=== PATIENT | male | born 2000 | race Caucasian/White ===

== ENCOUNTER 2019-06-09 19:06 | Emergency (ER) | payer SELFPAY ==
[~2019-06-09] VITALS: Ht 172.7 cm; Wt 74.8 kg
--- NOTE | 2019-06-09 19:10 | NUR ---
PATIENT TO ER #[id number]
--- NOTE | 2019-06-09 19:15 | NUR ---
Pt report received. Pt c/o ringing to left ear x 1 week. Pt states it's worse when he lays down and experiences sharp intermittent pain to back of head. Denies trauma or injury, no drainage noted. Cerum noted to bilat ear canals.
[2019-06-09 19:16] VITALS: BP_SYST 160
--- NOTE | 2019-06-09 19:16 | NUR ---
Dr. Chang at bedside.
--- NOTE | 2019-06-09 19:30 | NUR ---
Unable to visualize tympanum to bilateral ears as they are impacted with cerumen. Right ear irrigated with copious amounts of NS and small pieces of cerumen dislodge from ear canal. More NS placed to help break up remaing cerumen. Will reassess.
--- NOTE | 2019-06-09 19:45 | NUR ---
Irrigated right ear and more pieces of cerumen dislodged. Still unable to visualize tympanum. Swelling and irritation noted to ear canal. More NS placed and will reassess.
--- NOTE | 2019-06-09 20:00 | NUR ---
Right ear irrigated and large pieces of cerumen dislodged. Now able to visualize tympanum. Tympanum pearly cohen, intact, and non-bulging. No fluid noted to be behind tympanum. Pt states that his ear feels much better and his hearing is more clear.
--- NOTE | 2019-06-09 20:10 | NUR ---
Irrigation process repeated to Left ear in same fashion as performed to right ear. After copious flushing attempts, large pieces of cerumen dislodge. Allowed NS to soak and will reassess.
--- NOTE | 2019-06-09 20:30 | NUR ---
More large pieces of cerumen dislodge. Still unable to visualize tympanum.
--- NOTE | 2019-06-09 20:40 | NUR ---
Irrigated left ear again, more large pieces of cerumen dislodge. Now able to visualize a pearly cohen, intact, non-bulging tympanum. Irritation and swelling also noted to left ear canal. Pt states that his ear feels much better and is no longer experiencing tinnitus.
--- NOTE | 2019-06-09 20:58 | NUR ---
Patient given written and verbal discharge instructions and verbalizes understanding. ER MD discussed with patient the results and treatment provided. Patient in stable condition. ID arm band removed. Rx of Motrin given. Patient educated on pain management and to follow up with PMD. Pain Scale 2/10. Opportunity for questions provided and answered. Medication side effect fact sheet provided.
[2019-06-09 21:48] VITALS: BP_SYST 123
--- NOTE | 2019-06-09 21:48 | NUR ---
Note tootie in EDM - 06/10/19 at 0353 by [email or web address] Patient given written and verbal discharge instructions and verbalizes understanding. ER discussed with patient the results and treatment provided. Patient in stable condition. ID arm band removed. Rx of Motrin given. Patient educated on pain management and to follow up with PMD. Pain Scale 2/10. Opportunity for questions provided and answered. Medication side effect fact sheet provided.
== END 2019-06-09 20:58 | disposition home or self-care (01) ==
LOC: SED 19:06
DX: H61.22 Impacted cerumen, left ear (principal)
CPT/HCPCS: 99282

== ENCOUNTER 2019-06-17 20:40 | Emergency (ER) | payer SELFPAY ==
[~2019-06-17] VITALS: Ht 172.7 cm; Wt 72.6 kg
[2019-06-17 20:45] VITALS: BP_SYST 134
[2019-06-17 21:59] VITALS: BP_SYST 127
== END 2019-06-17 21:59 | disposition home or self-care (01) ==
LOC: SED 20:40
DX: H60.93 Unspecified otitis externa, bilateral (principal); R51 Headache
CPT/HCPCS: 99283

== ENCOUNTER 2019-07-06 19:05 | Emergency (ER) | payer SELFPAY ==
[~2019-07-06] VITALS: Ht 172.7 cm; Wt 72.1 kg
[2019-07-06 19:30] VITALS: BP_SYST 142
[2019-07-06] MEDS ORDERED: KETOROLAC TROMETHAMINE 15 MG VIAL IVP ONE (20:15)
[2019-07-06] MEDS ORDERED: NACL 0.9% 1,000 ML IV ONE (20:15)
[2019-07-06] MEDS ORDERED: PROCHLORPERAZINE EDISYLATE 10 MG/2 ML VIAL IVP ONE (20:15)
[2019-07-06 20:26] LABS: BASOPHILS % (AUTO) 0.4 % (0.0-2.0); EOSINOPHILS % (AUTO) 0.6 % (0.0-4.0); HEMATOCRIT 46.2 % (36-54); HEMOGLOBIN 15.9 g/dL (14.0-18.0); LYMPHOCYTES # (AUTO) 3.4 K/uL (1.0-5.5); LYMPHOCYTES % (AUTO) 43.8 % (20.5-51.5); MEAN CORPUSCULAR HEMOGLOBIN 31 pg (27-31); MEAN CORPUSCULAR HGB CONC 34 % (32-36); MEAN CORPUSCULAR VOLUME 89 fL (79.0-98.0); MONOCYTES # (AUTO) 0.5 K/uL (0.0-1.0); MONOCYTES % (AUTO) 6.1 % (1.7-9.3); NEUTROPHILS # (AUTO) 3.8 K/uL (1.8-7.7); NEUTROPHILS % (AUTO) 49.1 % (40.0-70.0); PLATELET COUNT (AUTO) 255 K/uL (130-430); RED BLOOD CELL COUNT(AUTO) 5.21 MIL/uL (4.2-6.2); RED CELL DISTRIBUTION WIDTH 12.7 % (9.0-15.0); WHITE BLOOD COUNT (AUTO) 7.8 K/uL (4.5-11.0)
[2019-07-06 21:18] LABS: CALCIUM 8.4 mg/dL (8.4-11.0); CREATININE 1.3 mg/dL (0.55-1.30); POTASSIUM 4.5 mmol/L (3.5-5.1)
[2019-07-06 21:23] LABS: TOTAL BILIRUBIN 0.9 mg/dL (0.0-1.0)
[2019-07-06 22:00] VITALS: BP_SYST 142
== END 2019-07-06 22:00 | disposition home or self-care (01) ==
LOC: SED 19:05
DX: R51 Headache (principal); I10 Essential (primary) hypertension; R73.9 Hyperglycemia, unspecified
CPT/HCPCS: 36415; 80053; 85025; 99283; J0780; J1885

== ENCOUNTER 2019-08-13 22:06 | Emergency (ER) | payer MEDICAID ==
[~2019-08-13] VITALS: Ht 152.4 cm; Wt 81.6 kg
[2019-08-14] MEDS ORDERED: LIDOCAINE 1%, 20 ML MDV 20 ML ONE (00:18)
[2019-08-14 02:02] VITALS: BP_SYST 130
== END 2019-08-14 02:02 | disposition home or self-care (01) ==
LOC: SED 22:06
DX: L60.0 Ingrowing nail (principal); L03.031 Cellulitis of right toe
CPT/HCPCS: 11730; 99284; J2001